=== PATIENT | male | born 1940 | race Caucasian/White ===

== ENCOUNTER 2016-11-07 21:18 | Observation (INO) | payer MEDICARE, OTHER ==
[~2016-11-07] VITALS: Ht 180.3 cm; Wt 93.0 kg
[2016-11-07] MEDS ORDERED: LIPI80TA PO (21:29)
[2016-11-07] MEDS ORDERED: APIX2.5T PO (21:29)
[2016-11-07] MEDS ORDERED: METO50TA PO (21:29)
[2016-11-07] MEDS ORDERED: MULT400T PO (21:29)
[2016-11-07 21:30] VITALS: BP 181/83; PULSE 68; RESP 18; TEMP 98.2; O2SAT 96
[2016-11-07 21:32] VITALS: RESP 18
--- NOTE | 2016-11-07 21:32 | PD ---
HPI Chief Complaint: chest pain Time Seen by Provider: 21:24 Travel History International Travel<30 days: No Contact w/Intl Traveler<30days: No Traveled to known affect area: No History of Present Illness HPI 76-year-old male complains of left-sided chest pain, left arm pain. Patient states the symptoms started about half an hour ago. Patient states that he was driving in the car and started having achiness of the left arm and then left chest. Patient states the symptoms were intermittent and lasted about 5 minutes and resolved completely. Patient denies any chest pain or arm pain now. Patient denies any shortness of breath with the chest pain. Patient has history of CAD status post stent placement. Patient is on Eliquis. Patient denies history hypertension, diabetes, patient has history of dyslipidemia. Patient is a nonsmoker. Patient has family history of heart disease. Patient states that he had inconclusive treadmill stress test done 3 days ago at [facility]. Patient also has history of paroxysmal atrial fibrillation. PFSH Social History Tobacco Use: No Allergies-Medications (Allergen,Severity, Reaction): Coded Allergies: No Known Allergies (Unverified , 11/07/16) Reported Meds & Prescriptions Reported Meds & Active Scripts Active Reported Lipitor (Atorvastatin Calcium) 80 Mg Tab 80 Mg PO HS Eliquis (Apixaban) 2.5 Mg Tab 2.5 Mg PO BID Multaq (Dronedarone) 400 Mg Tab 400 Mg PO BID Metoprolol Tartrate 50 Mg Tab 50 Mg PO DAILY Review of Systems General / Constitutional: No: Fever Eyes: No: Visual changes HENT: No: Headaches Cardiovascular: Positive: Chest Pain or Discomfort Respiratory: No: Shortness of Breath Gastrointestinal: No: Abdominal Pain Genitourinary: No: Dysuria Musculoskeletal: No: Pain Skin: No Rash Neurologic: No: Weakness Psychiatric: No: Depression Endocrine: No: Polydipsia Hematologic/Lymphatic: No: Easy Bruising Physical Exam Narrative GENERAL: Well-nourished, well-developed patient. SKIN: Warm and dry. HEAD: Normocephalic. EYES: No scleral icterus. No injection or drainage. NECK: Supple, trachea midline. No JVD or lymphadenopathy. CARDIOVASCULAR: Regular rate and rhythm without murmurs, gallops, or rubs. RESPIRATORY: Breath sounds equal bilaterally. No accessory muscle use. GASTROINTESTINAL: Abdomen soft, non-tender, nondistended. MUSCULOSKELETAL: No cyanosis, or edema. BACK: Nontender without obvious deformity. No CVA tenderness. Neurologic exam normal. Data Data Last Documented VS Vital Signs Date Time Temp Pulse Resp B/P Pulse Ox O2 Delivery O2 Flow Rate FiO2 11/07/16 21:32 65 18 97 Room Air 11/07/16 21:30 98.2 181/83 Orders Electrocardiogram (11/07/16 21:24) Complete Blood Count With Diff (11/07/16 21:24) Comprehensive Metabolic Panel (11/07/16 21:24) Creatine Kinase (Cpk) (11/07/16 21:24) Troponin I (11/07/16 21:24) B-Type Natriuretic Peptide (11/07/16 21:24) Prothrombin Time / Inr (Pt) (11/07/16 21:24) Act Partial Throm Time (Ptt) (11/07/16 21:24) Urinalysis - C+S If Indicated (11/07/16 21:24) Chest, Single Ap (11/07/16 21:24) Iv Access Insert/Monitor (11/07/16 21:24) Ecg Monitoring (11/07/16 21:24) Oximetry (11/07/16 21:24) Admit Order (Ed Use Only) (11/07/16 22:46) Labs Laboratory Tests Test 11/07/16 21:45 White Blood Count 8.6 TH/MM3 Red Blood Count 4.86 MIL/MM3 Hemoglobin 14.8 GM/DL Hematocrit 43.4 % Mean Corpuscular Volume 89.3 FL Mean Corpuscular Hemoglobin 30.5 PG Mean Corpuscular Hemoglobin 34.2 % Concent Red Cell Distribution Width 13.1 % Platelet Count 163 TH/MM3 Mean Platelet Volume 8.5 FL Neutrophils (%) (Auto) 39.8 % Lymphocytes (%) (Auto) 44.0 % Monocytes (%) (Auto) 10.4 % Eosinophils (%) (Auto) 4.8 % Basophils (%) (Auto) 1.0 % Neutrophils # (Auto) 3.4 TH/MM3 Lymphocytes # (Auto) 3.8 TH/MM3 Monocytes # (Auto) 0.9 TH/MM3 Eosinophils # (Auto) 0.4 TH/MM3 Basophils # (Auto) 0.1 TH/MM3 CBC Comment DIFF FINAL Differential Comment Prothrombin Time 11.7 SEC Prothromb Time International 1.1 RATIO Ratio Activated Partial 29.3 SEC Thromboplast Time Urine Color YELLOW Urine Turbidity CLEAR Urine pH 5.5 Urine Specific [place] 1.018 Urine Protein NEG mg/dL Urine Glucose (UA) NEG mg/dL Urine Ketones NEG mg/dL Urine Occult Blood TRACE Urine Nitrite NEG Urine Bilirubin NEG Urine Urobilinogen LESS THAN 2.0 MG/DL Urine Leukocyte Esterase NEG Urine RBC LESS THAN 1 /hpf Urine WBC 1 /hpf Microscopic Urinalysis Comment CULT NOT INDICATED Sodium Level 139 MEQ/L Potassium Level 3.9 MEQ/L Chloride Level 104 MEQ/L Carbon Dioxide Level 27.7 MEQ/L Anion Gap 7 MEQ/L Blood Urea Nitrogen 19 MG/DL Creatinine 1.42 MG/DL Estimat Glomerular Filtration 49 ML/MIN Rate Random Glucose 73 MG/DL Calcium Level 8.4 MG/DL Total Bilirubin 0.4 MG/DL Aspartate Amino Transf 44 U/L (AST/SGOT) Alanine Aminotransferase 46 U/L (ALT/SGPT) Alkaline Phosphatase 57 U/L Total Creatine Kinase 277 U/L Troponin I LESS THAN 0.02 NG/ML B-Type Natriuretic Peptide 149 PG/ML Total Protein 7.4 GM/DL Albumin 3.7 GM/DL [facility] Medical Decision Making Medical Screen Exam Complete: Yes Emergency Medical Condition: Yes Interpretation(s) 22:36 PM. EKG shows sinus rhythm nonspecific ST-T wave change. CBC within normal limit. BUN 19. Creatinine 1.42. Cardiac enzymes are normal. BNP 149. UA is negative. Differential Diagnosis Differential diagnosis including musculoskeletal, angina, MO, PE, pneumothorax. Narrative Course 76-year-old male with left sided chest pain left arm pain. History of CAD status post stent placement. Patient's on Eliquis. Patient will be admitted to the chest pain center Diagnosis Primary Impression: Chest pain Qualified Code: R07.9 - Chest pain, unspecified type [place] MD Nov 07, 2016 21:32 [place] MD Nov 07, 2016 21:32
--- NOTE | 2016-11-07 21:51 | RADRPT ---
EXAM DATE/TIME: 11/07/2016 21:36 [place] COMPARISON: No previous studies available for comparison. INDICATIONS : Left arm pain MEDICAL HISTORY : Cerebrovascular disease. SURGICAL HISTORY : Cardiac stents ENCOUNTER: Initial ACUITY: 1 day PAIN SCORE: 6/10 LOCATION: Chest FINDINGS: A single view of the chest demonstrates the lungs to be symmetrically aerated without evidence of mas s, infiltrate or effusion. The heart is mildly enlarged with panchamber configuration. The central bronchopulmonary markings are well delineated.. Osseous structures are intact. CONCLUSION: Mild cardiomegaly without focal infiltrates or evidence of alveolar edema. Osito Barrett MD on November 07, 2016 at 21:49 Board Certified Radiologist. This report was verified electronically.
[2016-11-07 21:56] LABS: AUTOMATED NEUTROPHIL # 3.4 TH/MM3 (1.8-7.7); BASOPHIL # 0.1 TH/MM3 (0-0.2); EOSINOPHIL # 0.4 TH/MM3 (0-0.4); EOSINOPHIL % 4.8 % (0.0-4.0); HEMATOCRIT 43.4 % (39.0-51.0); HEMO FLAGS DIFF FINAL; LYMPHOCYTE # 3.8 TH/MM3 (1.0-4.8); MEAN CELL VOLUME 89.3 FL (80.0-100.0); MEAN CORPUSCULAR HEMOGLOBIN 30.5 PG (27.0-34.0); MEAN CORPUSCULAR HGB CONC 34.2 % (32.0-36.0); MONO % 10.4 % (0.0-8.0); NEUT % 39.8 % (16.0-70.0); PLATELET COUNT 163 TH/MM3 (150-450); RED BLOOD COUNT 4.86 MIL/MM3 (4.50-5.90); RED CELL DISTRIBUTION WIDTH 13.1 % (11.6-17.2); WHITE BLOOD COUNT 8.6 TH/MM3 (4.0-11.0)
[2016-11-07 22:06] LABS: APTT (PATIENT) 29.3 SEC (24.3-30.1); INTERNATIONAL NORMALIZED RATIO 1.1 RATIO; PROTHROMBIN TIME - PATIENT 11.7 SEC (9.8-11.6)
[2016-11-07 22:14] LABS: BLOOD, URINE TRACE (NEG); COMMENT (UR) CULT NOT INDICATED; CULTURE IF INDICATED CULT NOT INDICATED; GLUCOSE,URINE NEG (NEG); KETONE, URINE NEG (NEG); NITRITE,URINE NEG (NEG); PH, URINE 5.5 (5.0-8.5); URINE COLOR YELLOW (YELLW/STRAW)
[2016-11-07 22:16] LABS: ANION GAP 7 MEQ/L (5-15); AST (GOT) 44 U/L (15-37); BICARBONATE 27.7 MEQ/L (21.0-32.0); BLOOD UREA NITROGEN 19 MG/DL (7-18); CHLORIDE 104 MEQ/L (98-107); GLOMERULAR FILTRATION RATE 49 ML/MIN (>89); POTASSIUM 3.9 MEQ/L (3.5-5.1); SODIUM (NA) 139 MEQ/L (136-145)
[2016-11-07 22:21] LABS: ALKALINE PHOSPHATASE 57 U/L (45-117); ALT (GPT) 46 U/L (12-78); CREATINE KINASE 277 U/L (39-308); TOTAL BILIRUBIN ADULT 0.4 MG/DL (0.2-1.0)
[2016-11-07 22:53] VITALS: BP 136/66; PULSE 58; RESP 16; O2SAT 98
[2016-11-07] MEDS ORDERED: NITROGLYCERIN 0.4 MG SL 25 TABS/BTL SL PRN (23:00)
[2016-11-07] MEDS ORDERED: ONDANSETRON HCL 4 MG/2 ML VIAL IV PRN (23:00)
[2016-11-07] MEDS ORDERED: ACETAMINOPHEN 500 MG CPLT PO PRN (23:00)
[2016-11-07] MEDS ORDERED: SODIUM CHLORIDE 0.9% FLUSH 5 ML FLUSH IVF PRN (23:00)
[2016-11-08 01:21] LABS: CREATINE KINASE 227 U/L (39-308)
[2016-11-08 01:33] VITALS: PULSE 53
[2016-11-08 01:34] LABS: CKMB 3.3 NG/ML (0.5-3.6)
[2016-11-08 04:00] VITALS: BP 141/74; PULSE 74; RESP 18; TEMP 98.1; O2SAT 97
[2016-11-08 04:05] VITALS: PULSE 48
[2016-11-08 04:17] LABS: CREATINE KINASE 254 U/L (39-308)
[2016-11-08 04:29] LABS: CKMB 3.1 NG/ML (0.5-3.6)
[2016-11-08 04:49] VITALS: O2SAT 98
[2016-11-08 07:30] VITALS: PULSE 49
[2016-11-08 08:55] VITALS: BP 155/73; PULSE 57; RESP 20; TEMP 97.9; O2SAT 95
[2016-11-08] MEDS ORDERED: SODIUM CHLORIDE 0.9% FLUSH 5 ML FLUSH IVF SCH (09:00)
[2016-11-08] MEDS ORDERED: METO50TA PO (10:16)
[2016-11-08] MEDS ORDERED: NIAC500T5 PO (10:16)
--- NOTE | 2016-11-08 10:18 | HHI.DCPOC ---
Discharge Care Plan Diagnosis: (1) Chest pain (2) CAD (coronary artery disease) (3) H/O heart artery stent (4) Paroxysmal a-fib (5) Hyperlipidemia (6) Renal insufficiency Goals to Promote Your Health * To prevent worsening of your condition and complications * To maintain your health at the optimal level Directions to Meet Your Goals Take your medications as prescribed Follow your dietary instruction Follow activity as directed Keep your appointments as scheduled Take your immunizations and boosters as scheduled If your symptoms worsen call your PCP, if no PCP go to Urgent Care Center or Emergency Room Smoking is Dangerous to Your Health. Avoid second hand smoke Call the 24-hour hour crisis hotline for domestic abuse at Max Chopra Nov 08, 2016 10:18
[2016-11-08] MEDS ORDERED: METO50TA11 PO (10:20)
--- NOTE | 2016-11-08 11:24 | MH ---
cc: BLAKE BILLY MD DATE OF ADMISSION: 11/07/2016 DATE OF 1940 CHIEF COMPLAINT Chest pain. HISTORY OF PRESENT ILLNESS This is a 36-year-old male who presents to the ED via private vehicle. He states that he has history of CAD with three stents and history of paroxysmal atrial fibrillation While driving home from [place] after dinner he developed discomfort in the left upper chest that radiated into his left arm. It lasted about 30 minutes. There was no associated shortness of breath, nausea or diaphoresis. He states it is not similar to when he needed stents in the past. He states that was a heaviness or pressure in the center of his chest with associated symptoms. He denied these type of symptoms with yesterday's episode. He also states that he had a physical last week at the [facility] including a stress test. He states that the stress test itself was okay but he went back in atrial fibrillation after the stress test. 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 PAST MEDICAL HISTORY 1. CAD with history of stent x 3. 2. Hyperlipidemia. 3. Paroxysmal atrial fibrillation. Denies hypertension and diabetes. FAMILY HISTORY Positive for CAD. SOCIAL HISTORY He is a nonsmoker. Denies alcohol. PAST SURGICAL HISTORY Heart catheterizations with stenting. ALLERGIES No known drug allergies. MEDICATIONS 1. Lipitor. 2. Eliquis. 3. Multaq. 4. Metoprolol. 5. Niacin. REVIEW OF SYSTEMS General: Denies fevers or chills. Denies recent illnesses. HEENT: Denies headache, earache, sore throat or difficulty swallowing. Cardiovascular: Describes the discomfort as mentioned above. Denies diaphoresis. Denies sensation of heart beating rapidly or irregularly. No syncope. Respiratory: Denies shortness of breath or inspirational chest discomfort. Denies coughing, wheezing or hemoptysis. GI: Denies nausea, vomiting, diarrhea, abdominal pain or blood in the stool. Musculoskeletal: Denies joint pain or edema. Denies calf pain or edema. Neurovascular: Denies headache or dizziness. Endocrine: Denies polyuria or polydipsia. Hematologic: Denies bruising. Skin: Denies rash or itching. PHYSICAL EXAMINATION Vital Signs: In the emergency department initially included a blood pressure of 181/83, heart rate 68, respiratory rate 18, pulse oximetry 96% on room air and he was afebrile. Most recent vital signs include a blood pressure 155/73, heart rate 57, respirations 20, pulse oximetry 95% on room air and he was afebrile. General: The patient is seen in the examination room in no apparent distress. He is very pleasant. He speaks in clear and complete sentences. HEENT: Head is atraumatic, normocephalic. Neck: Supple without lymphadenopathy. Trachea midline. No JVD or carotid bruit. Cardiovascular: Regular rate and rhythm without murmur, gallop or rub. Respiratory: Lungs clear to auscultation bilaterally. No wheezing, rales or rhonchi. No use of accessory muscles. No reproducible chest wall discomfort. GI: Abdomen is nontender, nondistended. Bowel sounds are normal. No guarding or rebound. No obvious pulsatile mass or bruit. No CVA tenderness. Strong femoral pulses bilaterally. Musculoskeletal: Patient moving upper and lower extremities freely. No joint tenderness or edema. No calf tenderness or edema. No Lissett's sign. Strong pulses in upper and lower extremity. Neurovascular: The patient is alert and oriented. Cranial II through XII are grossly intact. No focal deficits. Speech clear. Skin: No rashes. Turgor is normal. LABORATORY DATA CBC is unremarkable. Coagulation studies are unremarkable. Basic metabolic panel has a BUN elevated at 19, creatinine elevated at 1.42, GFR is 49, glucose is decreased at 73. Serial cardiac enzymes normal x 3. BNP is normal at 149. X-RAYS Single view chest x-ray read by radiologist as mild cardiomegaly without focal trace or evidence of alveolar edema. EKGs Sinus rhythm with first degree AV block. No significant ST segment depression or elevation. ASSESSMENT 1. Chest pain. The discomfort is atypical. He does have a history of heart disease. He has been seen by Dr. Blake Billy of Cardiology in the [facility]. He has stated history of a stress test recently that was okay and at this time he will be discharged home with instructions to follow up with local physician and resume his medicines. 2. Paroxysmal atrial fibrillation: Continue current medications. 3. Hyperlipidemia: Continue current medication. 4. Renal insufficiency: The patient needs to follow up with his PCP. The patient is stable at this time. He is agreeable with this plan. Dictated by: Akin Chopra PA-C MD THOM Mason/BOAZ /10:43 AM /11:23 AM
--- NOTE | 2016-11-08 13:32 | EKG ---
Date Performed: 11/08/2016 Time Performed: 03:54:21 PTAGE: 76 years EKG: SINUS BRADYCARDIA WITH FIRST DEGREE AV BLOCK ABNORMAL ECG PREVIOUS TRACING : 11/08/2016 00.56 Since previous tracing, no significant change noted DOCTOR: Rudy Billy Interpretating Date/Time 11/08/2016 13:32:16
--- NOTE | 2016-11-08 13:35 | EKG ---
Date Performed: 11/08/2016 Time Performed: 00:56:17 PTAGE: 76 years EKG: SINUS BRADYCARDIA WITH FIRST DEGREE AV BLOCK ABNORMAL ECG NO PREVIOUS TRACING DOCTOR: Rudy Billy Interpretating Date/Time 11/08/2016 13:33:28
--- NOTE | 2016-11-08 13:38 | EKG ---
Date Performed: 11/07/2016 Time Performed: 21:24:04 PTAGE: 76 years EKG: Sinus rhythm WITH FIRST DEGREE AV BLOCK ABNORMAL ECG NO PREVIOUS TRACING DOCTOR: Rudy Billy Interpretating Date/Time 11/08/2016 13:37:30
[2016-11-08] MEDS ORDERED: APIXABAN 2.5 MG TABLET PO SCH (21:00)
[2016-11-08] MEDS ORDERED: DRONEDARONE 400 MG TAB PO SCH (21:00)
[2016-11-08] MEDS ORDERED: ATORVASTATIN 80 MG TAB PO SCH (21:00)
[2016-11-09] MEDS ORDERED: NIACIN 500 MG EXTENDED RELEASE TAB PO SCH (09:00)
[2016-11-09] MEDS ORDERED: METOPROLOL SUCCINATE 50 MG EXTENDED RELEASE TAB PO SCH (09:00)
== END 2016-11-08 11:00 | disposition home or self-care (01) ==
LOC: NEPC 21:18 → NEDA 22:48 → NEPGCP 11-08 00:11
PROVIDERS: ADMIT Family Medicine; ATTEND Family Medicine
DX: R07.9 Chest pain, unspecified (principal); I25.10 Atherosclerotic heart disease of native coronary artery without angina pectoris; I48.0 Paroxysmal atrial fibrillation; E78.5 Hyperlipidemia, unspecified; N28.9 Disorder of kidney and ureter, unspecified; Z95.5 Presence of coronary angioplasty implant and graft; Z82.49 Family history of ischemic heart disease and other diseases of the circulatory system
CPT/HCPCS: 71010; 80053; 81001; 82550; 82552; 83880; 84484; 85025; 85610; 85730; 93005; 99285; G0378